=== PATIENT | female | born 1985 | race Caucasian/White ===

== ENCOUNTER 2017-08-02 11:24 | Outpatient (CLI) | payer OTHER ==
[~2017-08-02 11:24] MED LIST: CITRANATAL B-C1 EAC1; GASTRINEX CAPSU1 CAP PO; PREVACID30 MG; PROTONIX40 MG PO; ZANTAC300 MG
== END 2017-08-02 17:09 | disposition home or self-care (01) ==
LOC: OBS/DEL 11:24
DX: O26.892 Other specified pregnancy related conditions, second trimester (principal); Z34.82 Encounter for supervision of other normal pregnancy, second trimester; R10.2 Pelvic and perineal pain

== ENCOUNTER 2017-12-24 09:05 | Inpatient (IN) | payer OTHER ==
[~2017-12-24] VITALS: Ht 170.2 cm; Wt 4.1 kg
[2017-12-24] MEDS ORDERED: IRON325 MG (13:25)
[2017-12-27] MEDS ORDERED: NAPR500T14 PO (09:05)
[2017-12-27] MEDS ORDERED: Mylicon 125MG PO (09:05)
[2017-12-27] MEDS ORDERED: PREPLUS CA-FE1 EACH PO (09:05)
== END 2017-12-27 13:14 | disposition home or self-care (01) | DRG 766 ==
LOC: NST 09:05 → LDR 11:17 → OB/GYN 15:28
PROVIDERS: Specialist
PROC: 4A1HXCZ Monitoring of Products of Conception, Cardiac Rate, External Approach (ICD-10-PCS; 2017-12-24)
PROC: 10D00Z1 Extraction of Products of Conception, Low, Open Approach (ICD-10-PCS; principal; 2017-12-24 12:00)
DX: O36.63X0 Maternal care for excessive fetal growth, third trimester, not applicable or unspecified (principal); O48.0 Post-term pregnancy; Z3A.40 40 weeks gestation of pregnancy; Z37.0 Single live birth

== ENCOUNTER → 2018-01-02 | Emergency (ER) | payer OTHER ==
[~2018-01-02] VITALS: Ht 167.6 cm; Wt 73.5 kg
[~2018-01-02] MED LIST changes: +IRON325 MG; +Mylicon 125MG PO; +NAPR500T14 PO; +PREPLUS CA-FE1 EACH PO
== END | disposition home or self-care (01) ==
LOC: ER 14:02
DX: K64.5 Perianal venous thrombosis (principal)

== ENCOUNTER 2018-01-04 05:38 | Inpatient (IN) | payer OTHER ==
[~2018-01-04] VITALS: Ht 167.6 cm; Wt 73.5 kg
== END 2018-01-05 15:43 | disposition home or self-care (01) | DRG 349 ==
LOC: ER 05:38 → OB/GYN 08:58
PROVIDERS: Colon & Rectal Surgery
PROC: 06LY0CC Occlusion of Hemorrhoidal Plexus with Extraluminal Device, Open Approach (ICD-10-PCS; 2018-01-04)
PROC: 06BY0ZC Excision of Hemorrhoidal Plexus, Open Approach (ICD-10-PCS; principal; 2018-01-04 12:00)
DX: K64.4 Residual hemorrhoidal skin tags (principal); K64.1 Second degree hemorrhoids; K64.8 Other hemorrhoids

== ENCOUNTER 2020-05-15 06:16 | Emergency (ER) | payer OTHER ==
[~2020-05-15] VITALS: Ht 167.6 cm; Wt 62.6 kg
== END 2020-05-15 14:02 | disposition home or self-care (01) ==
LOC: ER 06:16
DX: Z34.01 Encounter for supervision of normal first pregnancy, first trimester (principal); R10.2 Pelvic and perineal pain; Z03.818 Encounter for observation for suspected exposure to other biological agents ruled out

== ENCOUNTER 2024-03-12 06:00 | Day surgery (SDC) | payer OTHER ==
[2024-03-11 11:04] LABS: HEMATOCRIT 34.6 % (36.0-45.00); HEMOGLOBIN 12.4 g/dL (12.0-15.00); MEAN CELL VOLUME 92.7 fL (80.00-100.00); MEAN CORPUSCULAR HEMOGLOBIN 33.2 pg (27.00-32.0); MEAN CORPUSCULAR HGB CONC 35.8 g/dl (32.0-36.0); PLATELET COUNT 194 K/uL (150-450); RED BLOOD COUNT 3.74 M/uL (4.00-6.00)
[2024-03-11 11:35] LABS: INR 1.03; PARTIAL THROMBOPLASTIN TIME 32.4 SECONDS (22.0-34.0); PROTHROMBIN TIME 10.8 SECONDS (9.0-11.5)
[~2024-03-12 06:00] MED LIST changes: +CEFOXITIN SODIUM 2,000 MG VIAL IV NR; +DESMOPRESSIN ACETATE 4 MCG/ML AMPUL IV NR; +KAOPECTATE PO; +PHENERGAN25 MG PO; +RINGERS LACTATED IV NR
[2024-03-12] MEDS ORDERED: RINGERS SOLUTION,LACTATED 1,000 ML IV SCH (08:00)
[2024-03-12] MEDS ORDERED: CEFOXITIN SODIUM 2,000 MG VIAL IV ONE (08:32)
== END 2024-03-12 15:10 | disposition home or self-care (01) ==
LOC: CIR.AMB 06:00
PROVIDERS: ATTEND Obstetrics & Gynecology Maternal & Fetal Medicine
DX: O02.1 Missed abortion (principal); O72.2 Delayed and secondary postpartum hemorrhage